=== PATIENT | female | born 1975 | race Caucasian/White ===

== ENCOUNTER 2016-10-29 12:50 | Emergency (ER) | payer OTHER ==
[~2016-10-29] VITALS: Ht 170.2 cm; Wt 94.9 kg
[~2016-10-29 12:50] MED LIST: LORA0.5T PO; LOVA10TA PO; ONDA4TAB10 PO; OXYC-302 PO
[2016-10-29] MEDS ORDERED: SODIUM CHLORIDE 0.9% 1,000ML IVBOLUS ONE (14:00)
[2016-10-29] MEDS ORDERED: ONDANSETRON 2MG/ML, 2ML IVPush ONE (14:00)
[2016-10-29] MEDS ORDERED: MORPHINE SULFATE 4 MG/ML, 1ML IVPush PRN (14:00)
[2016-10-29 14:04] LABS: HEMATOCRIT 43.5 % (34.6-47.8); HEMOGLOBIN 14.4 g/dL (11.7-16.4); WHITE BLOOD COUNT 6.6 x10^3/uL (3.4-10)
[2016-10-29] MEDS ORDERED: ONDANSETRON 2MG/ML, 2ML ONE (14:14)
[2016-10-29] MEDS ORDERED: MORPHINE SULFATE 4 MG/ML, 1ML ONE (14:14)
[2016-10-29 14:15] LABS: BLOOD UREA NITROGEN 7 mg/dL (7-18)
[2016-10-29 15:11] VITALS: BP 113/66
== END 2016-10-29 16:27 | disposition home or self-care (01) ==
LOC: ED 13:46
DX: D25.9 Leiomyoma of uterus, unspecified (principal)
CPT/HCPCS: 36415; 76830; 80048; 81001; 82040; 84703; 85025; 87086; 96361; 96374; 96375; 99285; J2405; J7030

== ENCOUNTER → 2016-11-15 | Outpatient (CLI) | payer OTHER ==
[~2016-11-15] MED LIST changes: +OMNIPAQUE 350 MG/ML, 100ML BOTTLE ONE
== END | disposition home or self-care (01) ==
LOC: RAD 13:57
PROVIDERS: ATTEND Family Medicine
DX: N83.201 Unspecified ovarian cyst, right side (principal); D25.9 Leiomyoma of uterus, unspecified; D18.03 Hemangioma of intra-abdominal structures
CPT/HCPCS: 74177; Q9967

== ENCOUNTER 2017-11-21 08:14 | Observation (INO) | payer OTHER ==
[~2017-11-21] VITALS: Ht 170.2 cm; Wt 81.5 kg
[~2017-11-21 08:14] MED LIST changes: -OMNIPAQUE 350 MG/ML, 100ML BOTTLE ONE
[2017-11-21] MEDS ORDERED: LORA1TAB PO (08:33)
[2017-11-21 08:39] LABS: BASOPHILS # (AUTO) 0.03 x10^3/uL (0-0.1); BASOPHILS % (AUTO) 1 % (0-1); EOSINOPHILS # (AUTO) 0.05 x10^3/uL (0-0.4); EOSINOPHILS % (AUTO) 1 % (1-7); LYMPHOCYTES # (AUTO) 1.45 x10^3/uL (1-3.4); LYMPHOCYTES % (AUTO) 26 % (22-44); MD NO; MEAN CORPUSCULAR HEMOGLOBIN 30.5 pg (27.0-34.8); MEAN CORPUSCULAR HGB CONC 34.4 g/dL (32.4-35.8); MEAN CORPUSCULAR VOLUME 88.6 fL (80-100); MEAN PLATELET VOLUME 7.9 fL (7.4-10.4); MONOCYTES % (AUTO) 7 % (2-9); NEUTROPHILS # (AUTO) 3.71 x10^3/uL (1.8-6.8); NEUTROPHILS % (AUTO) 66 % (42-75); PLATELET COUNT 349 x10^3/uL (130-400); RED BLOOD COUNT 4.97 x10^6/uL (3.82-5.3); RED CELL DISTRIBUTION WIDTH 12.7 % (9.6-15.2)
[2017-11-21 08:49] LABS: ALANINE AMINOTRANSFERASE 14 U/L (12-78); ALBUMIN 3.6 g/dL (3.4-5.0); ANION GAP 12 mmol/L (5-15); CALCIUM 8.5 mg/dL (8.5-10.1); CHLORIDE 104 mmol/L (98-107)
[2017-11-21 08:51] LABS: SALICYLATE LEVEL < 1.7 mg/dL (2.8-20.0)
[2017-11-21 08:55] LABS: ALKALINE PHOSPHATASE 89 U/L (45-117); BILIRUBIN,TOTAL 0.7 mg/dL (0.2-1.0); CREATININE 0.92 mg/dL (0.55-1.02); TOTAL PROTEIN 7.6 g/dL (6.4-8.2)
[2017-11-21 08:58] LABS: ACETAMINOPHEN < 2 mcg/mL (10-30)
[2017-11-21 09:00] LABS: THYROID STIMULATING HORMONE 0.853 mIU/L (0.358-3.740)
[2017-11-21] MEDS ORDERED: IBUPROFEN 200 MG TABLET ONE (10:33)
[2017-11-21] MEDS ORDERED: ARIPIPRAZOLE 5 MG TABLET ONE (10:45)
[2017-11-21] MEDS: ARIPIPRAZOLE 5 MG TABLET PO SCH (10:49)
[2017-11-21] MEDS ORDERED: IBUPROFEN 200 MG TABLET PO ONE (11:00)
[2017-11-21] MEDS ORDERED: DOCUSATE 100 MG CAPSULE PO PRN (12:00)
[2017-11-21 13:22] LABS: AMPHETAMINE SCREEN, URINE Negative (Negative); BARBITURATE SCREEN, URINE Negative (Negative); BENZODIAZEPINE SCREEN, URINE Negative (Negative); CANNABINOID SCREEN, URINE Negative (Negative); COCAINE SCREEN, URINE Negative (Negative); METHADONE SCREEN, URINE Negative (Negative); OPIATE SCREEN, URINE Negative (Negative)
[2017-11-21 16:51] VITALS: BP 132/86
[2017-11-21 19:27] VITALS: BP 94/65
[2017-11-21 20:59] VITALS: BP 106/73
[2017-11-22 08:12] VITALS: BP 109/76
[2017-11-22] MEDS: ARIPIPRAZOLE 5 MG TABLET PO SCH (08:59)
[2017-11-22] MEDS: ACETAMINOPHEN 325 MG TABLET PO PRN (16:31)
[2017-11-22] MEDS ORDERED: POTASSIUM CHLORIDE 20 MEQ TAB.ER.PRT ONE ×2 (17:16)
[2017-11-22] MEDS ORDERED: POTASSIUM CHLORIDE 20 MEQ TAB.ER.PRT PO ONE (17:30)
[2017-11-22 19:12] VITALS: BP 114/82
[2017-11-23 08:06] VITALS: BP 104/72
[2017-11-23] MEDS: ARIPIPRAZOLE 5 MG TABLET PO SCH (08:12)
[2017-11-23] MEDS: ACETAMINOPHEN 325 MG TABLET PO PRN (08:19)
== END 2017-11-23 19:45 ==
LOC: ED 08:47 → EDIP 11:08 → 2N 14:52
PROVIDERS: ADMIT Hospitalist; ATTEND Hospitalist
DX: R45.851 Suicidal ideations (principal); F41.9 Anxiety disorder, unspecified; F31.9 Bipolar disorder, unspecified; E87.6 Hypokalemia; E78.5 Hyperlipidemia, unspecified; E28.2 Polycystic ovarian syndrome; G43.901 Migraine, unspecified, not intractable, with status migrainosus; G89.29 Other chronic pain; F17.200 Nicotine dependence, unspecified, uncomplicated; Z80.0 Family history of malignant neoplasm of digestive organs; Z82.49 Family history of ischemic heart disease and other diseases of the circulatory system; Z79.899 Other long term (current) drug therapy
CPT/HCPCS: 36415; 80053; 80307; 80329; 84443; 84703; 85025; 93005; 99285; G0378; G0480

== ENCOUNTER → 2018-08-27 | Outpatient (CLI) | payer OTHER ==
[~2018-08-27] MED LIST changes: +LORA1TAB PO
== END | disposition home or self-care (01) ==
LOC: CFH 14:39
PROVIDERS: ATTEND Family Medicine
DX: E04.1 Nontoxic single thyroid nodule (principal); N63.42 Unspecified lump in left breast, subareolar; N64.4 Mastodynia
CPT/HCPCS: 76536; 76642; 77066; G0279

== ENCOUNTER 2020-04-17 06:09 | Emergency (ER) | payer OTHER ==
[~2020-04-17] VITALS: Ht 170.2 cm; Wt 93.0 kg
[~2020-04-17 06:09] MED LIST changes: -OXYC-302 PO; +OXYC1TAB14 PO
--- NOTE | 2020-04-17 07:15 | NUR ---
REPORT RECEIVED FROM R[facility] PRATER.
--- NOTE | 2020-04-17 07:27 | NUR ---
FIRST CONTACT W/ PT. PT RESTING ON [employer] W/ CALL LIGHT IN REACH AND SIDE RAILS UPX2. REQUESTING MOTRIN FOR 8/10 STERNAL PAIN, ERP UPDATED. PT CONVERSING IN FULL SENTENCES W/O DIFFICULTY. AMAURI VENEGAS. AWAITING LAB RESULTS.
[2020-04-17 07:41] LABS: BASOPHILS % (AUTO) 0 % (0-1); EOSINOPHILS % (AUTO) 0 % (1-7); LYMPHOCYTES % (AUTO) 25 % (22-44); MEAN CORPUSCULAR HEMOGLOBIN 29.6 pg (27.0-34.8); MEAN CORPUSCULAR HGB CONC 33.9 g/dL (32.4-35.8); MEAN PLATELET VOLUME 7.7 fL (7.4-10.4); MONOCYTES % (AUTO) 6 % (2-9); NEUTROPHILS % (AUTO) 69 % (42-75); PLATELET COUNT 416 x10^3/uL (130-400); RED BLOOD COUNT 4.54 x10^6/uL (3.82-5.3); RED CELL DISTRIBUTION WIDTH 13.6 % (9.6-15.2)
[2020-04-17 07:44] LABS: ALBUMIN 3.3 g/dL (3.4-5.0); ANION GAP 6 mmol/L (5-15); CALCIUM 8.5 mg/dL (8.5-10.1); CHLORIDE 111 mmol/L (98-107)
[2020-04-17 07:48] LABS: ALANINE AMINOTRANSFERASE 15 U/L (12-78); ALKALINE PHOSPHATASE 80 U/L (45-117); BILIRUBIN,TOTAL 0.3 mg/dL (0.2-1.0); CREATININE 0.97 mg/dL (0.55-1.02); TOTAL PROTEIN 6.8 g/dL (6.4-8.2)
[2020-04-17 07:50] LABS: MD NO
--- NOTE | 2020-04-17 08:18 | NUR ---
ALL TESTS RESULTED. PT IS UP FOR RECHECK AT THIS TIME.
[2020-04-17] MEDS ORDERED: IBUPROFEN 600 MG TABLET ONE (08:36)
--- NOTE | 2020-04-17 08:40 | NUR ---
PT RESTING ON [employer] W/ CALL LIGHT IN REACH AND SIDE RAILS UPX2. VSS, NADN. PT MEDICATED PER EMAR. PT AWAITING RECHECK.
[2020-04-17 08:53] VITALS: BP 112/73
[2020-04-17] MEDS ORDERED: VANCOMYCIN PER PHARMACY MC ONE (09:00)
[2020-04-17] MEDS ORDERED: MEROPENEM 1 GM in SODIUM CHLORIDE 0.9% 100 ML IVPB ONE (09:00)
[2020-04-17] MEDS ORDERED: IBUPROFEN 600 MG TABLET PO ONE (09:00)
[2020-04-17] MEDS ORDERED: VANCOMYCIN 2,300 MG in SODIUM CHLORIDE 0.9% 500 ML IV ONE (09:00)
--- NOTE | 2020-04-17 09:30 | NUR ---
Patient given discharge instructions and they have confirmed that they understand the instructions. Patient ambulatory with steady gait.
== END 2020-04-17 09:32 | disposition home or self-care (01) ==
LOC: ED 07:49
DX: J20.8 Acute bronchitis due to other specified organisms (principal); B97.89 Other viral agents as the cause of diseases classified elsewhere; R07.89 Other chest pain
CPT/HCPCS: 36415; 71045; 80053; 85025; 93005; 99285

== ENCOUNTER 2020-09-04 12:11 | Outpatient (CLI) | payer OTHER ==
[~2020-09-04 12:11] MED LIST changes: +OXYC1TAB12 PO; -OXYC1TAB14 PO
== END 2020-09-04 23:59 | disposition home or self-care (01) ==
LOC: RAD 12:11
PROVIDERS: ATTEND Obstetrics & Gynecology
DX: R10.9 Unspecified abdominal pain (principal)
CPT/HCPCS: 74021